=== PATIENT | female | born 1980 | race Caucasian/White ===

== ENCOUNTER 2017-07-03 15:06 | Emergency (ER) | payer MEDICAID ==
--- NOTE | 2017-07-03 15:53 | RAD ---
Indication: Left-sided pain. 3 views of left foot demonstrates no fracture. No other bone or joint abnormality is identified. IMPRESSION: No fracture of the left foot is noted.
--- NOTE | 2017-07-03 16:10 | UC ---
Lower Extremity/Ankle HPI - HPI Summary HPI Summary: left foot shut in bottom of a car door last night - History of Current Complaint Hx Obtained From: Patient Hx Last Menstrual Period: 06/27/17 ?: No Onset/Duration: Sudden Onset, Lasting Days - 1, Still Present Severity Initially: Moderate Severity Currently: Moderate Pain Intensity: 7 Pain Scale Used: 0-10 Numeric Aggravating Factor(s): Standing, Ambulation Alleviating Factor(s): Rest, Elevation, Ice Able to Bear Weight: Yes <Lacie Easton - Last Filed: 07/03/17 16:34> <Gali Brown - Last Filed: 07/03/17 16:41> - History of Current Complaint Chief Complaint: UCLowerExtremity Stated Complaint: FOOT INJURY Time Seen by Provider: 07/03/17 16:09 - Allergies/Home Medications Allergies/Adverse Reactions: Allergies Allergy/AdvReac Type Severity Reaction Status Date / Time nuts Allergy anaph Uncoded 07/03/17 15:14 Home Medications: Home Medications ALPRAZolam TAB* [Xanax TAB*] 0.5 mg PO TID 07/03/17 [History Confirmed 07/03/17] Albuterol 2.5MG/3ML (0.083%)* [Ventolin 2.5 MG/3 ML NEB.RYAN*] 2.5 mg PO PRN 06/12 [History] Albuterol HFA INHALER* [Ventolin HFA Inhaler*] 1 puff PO PRN 07/03/17 [History] Budesonide/Formote 160/4.5(NF) [Symbicort 160/4.5 (NF)] 1 puff PO DAILY [History Confirmed 07/03/17] Citalopram TAB* [Celexa TAB*] 40 mg PO BEDTIME 07/03/17 [History Confirmed 07/03] Fluticasone NASAL * [Flonase *] 1 spr NASAL BID 07/03/17 [History Confirmed 06/12] Loratadine 10 mg PO DAILY 07/03/17 [History Confirmed 07/03/17] Montelukast Sodium TAB* [Singulair 10 MG TAB*] 10 mg PO BEDTIME 07/03/17 [ History Confirmed 07/03/17] QUEtiapine TAB* [Seroquel TAB*] 25 mg PO BEDTIME 07/03/17 [History Confirmed 06/12] Tiotropium CAP.INH* [Spiriva CAP.INH*] 18 mcg PO DAILY 07/03/17 [History Confirmed 07/03/17] PMH/Surg Hx/FS Hx/Imm Hx Previously Healthy: Yes Respiratory History: COPD Psychological History: Anxiety, Depression - Surgical History Surgical History: Yes Surgery Procedure, Year, and Place: appy,right knee replaced ,tubal ligation - Family History Known Family History: Positive: None Family History: no cardio vascular issues reported in family lineage - Social History Occupation: Unemployed Lives: With Family Alcohol Use: None Substance Use Type: Marijuana Smoking Status (MU): Heavy Every Day Tobacco Smoker Have You Smoked in the Last Year: Yes Cessation Counseling: Patient Advised to Stop <Lacie Easton - Last Filed: 07/03/17 16:34> Review of Systems Constitutional: Negative Skin: Bruising - left foot Eyes: Negative ENT: Negative Respiratory: Negative Cardiovascular: Negative Gastrointestinal: Negative Genitourinary: Negative Motor: Negative Neurovascular: Negative Musculoskeletal: Arthralgia - left foot Neurological: Negative Psychological: Negative All Other Systems Reviewed And Are Negative: Yes <Lacie Easton - Last Filed: 07/03/17 16:34> Physical Exam Triage Information Reviewed: Yes Appearance: Well-Appearing, No Pain Distress, Well-Nourished Vital Signs: Initial Vital Signs Temp 98.5 F 07/03/17 15:14 Pulse 93 07/03/17 15:14 Resp 18 07/03/17 15:14 Pulse Ox 99 07/03/17 15:14 Vital Signs Reviewed: Yes Eye Exam: Normal Eyes: Positive: Conjunctiva Clear ENT Exam: Normal ENT: Positive: Normal ENT inspection, Hearing grossly normal, Pharynx normal, TMs normal. Negative: Nasal congestion, Nasal drainage, Trismus, Muffled/ hoarse voice Dental Exam: Other Dental: Positive: Gross Decay/Caries @ Neck exam: Normal Neck: Positive: Supple, Nontender Respiratory Exam: Normal Respiratory: Positive: Chest non-tender, No respiratory distress, No accessory muscle use Cardiovascular Exam: Normal Cardiovascular: Positive: RRR, Pulses Normal, Brisk Capillary Refill Musculoskeletal Exam: Normal Musculoskeletal: Positive: Strength Intact, ROM Intact, Edema @ - left great toe Neurological Exam: Normal Neurological: Positive: Alert, Muscle Tone Normal Psychological Exam: Normal Skin Exam: Normal <Lacie Easton - Last Filed: 07/03/17 16:34> Vital Signs: Initial Vital Signs Temp 98.5 F 07/03/17 15:14 Pulse 93 07/03/17 15:14 Resp 18 07/03/17 15:14 Pulse Ox 99 07/03/17 15:14 <Gali Brown - Last Filed: 07/03/17 16:41> Diagnostics - Radiology No standard instances Xray Interpretation: No Acute Changes Radiology Interpretation Completed By: Radiologist <Lacie Easton - Last Filed: 07/03/17 16:34> Lower Extremity Course/Dx - Course Course Of Treatment: Rice, Post op shoe, NSAID, follow with ortho prn - Differential Dx/Diagnosis Differential Diagnosis/HQI/PQRI: Contusion, Fracture (Closed), Infection - Left foot contusion, nicotine dependnt Provider Diagnoses: Left foot contusion <Lacie Easton - Last Filed: 07/03/17 16:34> Discharge <Lacie Easton - Last Filed: 07/03/17 16:34> <Gali Brown - Last Filed: 07/03/17 16:41> - Discharge Plan Condition: Stable Disposition: HOME Prescriptions: Ibuprofen TAB* [Motrin TAB* 600 MG] 600 mg PO Q6H PRN #30 tab PRN Reason: Pain Patient Education Materials: Foot Contusion (ED), RICE Therapy (ED) Referrals: [facility] [Provider Group] - 7 Days Attestation Statement User Type: Provider - I was available for consult. This patient was seen by the [facility]. The patient was not presented to, seen by, or examined by me. -Edy <Gali Brown - Last Filed: 07/03/17 16:41>
[2017-07-03] MEDS ORDERED: Ibuprofen TAB* 600 MG PO ONE (16:28)
== END 2017-07-03 16:45 | disposition home or self-care (01) ==
LOC: UCEAST 15:06
DX: S90.32XA Contusion of left foot, initial encounter (principal); W23.0XXA Caught, crushed, jammed, or pinched between moving objects, initial encounter; J44.9 Chronic obstructive pulmonary disease, unspecified; F41.9 Anxiety disorder, unspecified; F32.9 Major depressive disorder, single episode, unspecified; F12.90 Cannabis use, unspecified, uncomplicated; F17.210 Nicotine dependence, cigarettes, uncomplicated; Z96.651 Presence of right artificial knee joint; Z91.018 Allergy to other foods
CPT/HCPCS: 99202; A9270-GY; G0463

== ENCOUNTER 2018-01-01 20:11 | Emergency (ER) | payer MEDICAID ==
[2018-01-01] MEDS ORDERED: predniSONE TAB* 20 MG PO ONE (23:29)
[2018-01-01] MEDS ORDERED: Diazepam TAB(*) 5 MG PO ONE (23:29)
--- NOTE | 2018-01-01 23:34 | ED ---
Back Pain - HPI Summary HPI Summary: Patient here with a slip and fall on the ice 2 days ago. Reports she fell straight back as she slipped. Denies head/neck injury and no neuro deficits. She landed on her back and her right elbow which she believes caused her to injure her right shoulder. She has a history of chronic back pain and feels that this fall has exacerbated that. She does not have any new symptoms of numbness tingling or weakness into her legs and denies change in bowel or bladder habits since fall. She also reports she has no pain in her elbow and is able to move this well she just has pain in her shoulder with certain movements but not all. She has a history of right shoulder overuse injury which she suspects was a rotator cuff tendinitis. This healed over time. Think she tweaked it again with this fall - denies numbness, tingling, weakness into this extremity. Has tried BenGay rub and ibuprofen for her pain with minimal relief. She reports she was being followed by her primary care doctor for chronic back pain and prescribed oxycodone 10 mg however she's been referred to pain management and is awaiting her first appointment there. She does admit to taking multiple mental health medications including but not limited to citalopram and Seroquel (no benzo's). She admits she is mostly here tonight because her back pain is impairing her ability to sleep and she just can 't get comfortable. 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 Hx Last Menstrual Period: 06/27/17 Pain Intensity: 8 - Allergies/Home Medications Allergies/Adverse Reactions: Allergies Allergy/AdvReac Type Severity Reaction Status Date / Time nuts Allergy anaph Uncoded 01/01/18 20:19 PMH/Surg Hx/FS Hx/Imm Hx Previously Healthy: Yes Respiratory History: Reports: Hx Chronic Obstructive Pulmonary Disease (COPD) Musculoskeletal History: Reports: Hx Back Problems - chronic back pain Psychiatric History: Reports: Hx Anxiety - insomnia, Hx Depression - Surgical History Surgery Procedure, Year, and Place: appy,right knee replaced ,tubal ligation - Immunization History Date of Influenza Vaccine: Fall 2015 Infectious Disease History: No Infectious Disease History: Denies: Hx Clostridium Difficile, Hx Hepatitis, Hx Human Immunodeficiency Virus (HIV), Hx of Known/Suspected MRSA, Hx Shingles, Hx Tuberculosis, Hx Known/ Suspected VRE, Hx Known/Suspected VRSA, History Other Infectious Disease, Traveled Outside the [place] in Last 30 Days - Family History Known Family History: Positive: None Family History: no cardio vascular issues reported in family lineage - Social History Lives: With Family Alcohol Use: None Substance Use Type: Reports: Marijuana - helps anxiety - does not help back pain Hx Tobacco Use: Yes Smoking Status (MU): Current Every Day Smoker Have You Smoked in the Last Year: Yes Review of Systems Constitutional: Negative Eyes: Negative Negative: Photophobia, Blurred Vision, Diplopia ENT: Negative Negative: Dental Pain Cardiovascular: Negative Negative: Chest Pain Respiratory: Negative Negative: Shortness Of Breath Gastrointestinal: Negative Negative: Vomiting, Nausea Genitourinary: Negative Negative: incontinence Positive: Arthralgia, Myalgia Skin: Negative Neurological: Negative Positive: Anxious All Other Systems Reviewed And Are Negative: Yes Physical Exam Triage Information Reviewed: Yes Vital Signs On Initial Exam: Initial Vitals Temp Pulse Resp BP Pulse Ox 98.6 F 103 18 191/90 99 01/01/18 20:16 01/01/18 20:16 01/01/18 20:16 01/01/18 20:16 01/01/18 20:16 Vital Signs Reviewed: Yes Appearance: Positive: Well-Appearing, No Pain Distress, Well-Nourished Skin: Positive: Warm, Skin Color Reflects Adequate Perfusion, Dry - no erythema , no ecchymosis over affected areas Head/Face: Positive: Normal Head/Face Inspection Eyes: Positive: Normal, EOMI, ENRICO - no photophobia ENT: Positive: Normal ENT inspection, Hearing grossly normal, Pharynx normal, TMs normal Dental: Positive: Gross Decay/Caries @ Respiratory/Lung Sounds: Positive: Breath Sounds Present Cardiovascular: Positive: Normal, Pulses are Symmetrical in both Upper and Lower Extremities Abdomen Description: Positive: Nontender, Soft Musculoskeletal: Positive: Strength/ROM Intact, Pain @ - mild positive empty can - otherwise normal shoulder exam; entire back is TTP Neurological: Positive: Normal, Sensory/Motor Intact, Alert, Oriented to Person Place, Time, CN Intact II-III Psychiatric: Positive: Normal Diagnostics - Vital Signs Vital Signs Temp Pulse Resp BP Pulse Ox 01/01/18 22:25 92 18 115/77 95 01/01/18 20:16 98.6 F 103 18 191/90 99 - Laboratory Lab Statement: Any lab studies that have been ordered have been reviewed, and results considered in the medical decision making process. Back Pain Course/Dx - Course Course Of Treatment: Suspect patient exacerbated her chronic back pain with fall. Suggested she continue ibuprofen for anti-inflammatory relief as well as new additions of prednisone and diazepam for muscle relaxation to help her sleep at night. Her shoulder appears to be a tendinitis. Offered x-ray however patient declined. She reports she will follow-up if her symptoms persist or worsen with her PCP. Reviewed danger signs and symptoms of when to return to the emergency department. Patient and friend agree with plan. - Diagnoses Provider Diagnoses: Acute exacerbation of chronic low back pain, Fall from slipping on ice, Sprain of right shoulder Discharge - Discharge Plan Condition: Stable Disposition: HOME Prescriptions: Diazepam TAB(*) [Valium TAB(*)] 5 mg PO BEDTIME PRN #3 tab MDD 1 PRN Reason: Pain predniSONE TAB* [Deltasone TAB*] 40 mg PO DAILY #8 tab Patient Education Materials: Muscle Spasm (ED), Back Pain (ED), Fall Prevention (ED) Referrals: Gera GODFREY,Esau Gallardo [Primary Care Provider] - Additional Instructions: You may take ibuprofen alternating with acetaminophen for your back pain as well - take with food Use new medications as directed Follow-up with PCP later this week if symptoms persist *If you develop numbness, weakness, change in bowel/bladder habits, return to the ED
[2018-01-01 23:58] VITALS: BP 110/80
== END 2018-01-01 23:57 | disposition home or self-care (01) ==
LOC: ED 20:11
DX: S43.401A Unspecified sprain of right shoulder joint, initial encounter (principal); M54.5 Low back pain; G89.29 Other chronic pain; W00.0XXA Fall on same level due to ice and snow, initial encounter; F17.200 Nicotine dependence, unspecified, uncomplicated; Y92.9 Unspecified place or not applicable; F41.9 Anxiety disorder, unspecified; F32.9 Major depressive disorder, single episode, unspecified; J44.9 Chronic obstructive pulmonary disease, unspecified; G47.00 Insomnia, unspecified
CPT/HCPCS: 99282; A9270-GY; J7512

== ENCOUNTER 2018-05-29 12:02 | Emergency (ER) | payer OTHER ==
--- NOTE | 2018-05-29 12:54 | RAD ---
HISTORY: injury, right ankle pain COMPARISONS: None VIEWS: 3, Frontal, lateral, and oblique views of the right ankle FINDINGS: BONE DENSITY: Normal. BONES: There is no displaced fracture. JOINTS: There is no arthropathy. ALIGNMENT: There is no dislocation. SOFT TISSUES: Unremarkable. OTHER FINDINGS: None. IMPRESSION: NO ACUTE OSSEOUS INJURY. IF SYMPTOMS PERSIST, RECOMMEND REPEAT IMAGING.
[2018-05-29 13:10] VITALS: BP 144/87
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
== END 2018-05-29 13:08 | disposition home or self-care (01) ==
LOC: ED 12:02
DX: S93.401A Sprain of unspecified ligament of right ankle, initial encounter (principal); X50.0XXA Overexertion from strenuous movement or load, initial encounter; Y92.9 Unspecified place or not applicable; F17.200 Nicotine dependence, unspecified, uncomplicated
CPT/HCPCS: 99281

== ENCOUNTER 2018-06-24 03:06 | Inpatient (IN) | payer OTHER ==
[2018-06-24] MEDS ORDERED: predniSONE TAB* 20 MG PO ONE (03:50)
[2018-06-24] MEDS ORDERED: Albuterol 0.5% CONC NEB.SOL* 5 MG/ML 20 ml BOT INH ONE ×2 (03:52→06:13)
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
[2018-06-24] MEDS ORDERED: Magnesium Sulfate 2 GM IV* 2 GM/50 ML BAG IVPB ONE (06:13)
[2018-06-24] MEDS ORDERED: EPINEPHrine AMP 1 MG/ML IM ONE (06:13)
[2018-06-24 07:23] LABS: ABS Basophils 0 10^3/ul (0-0.2); ABS Eosinophils 0 10^3/ul (0-0.6); ABS Lymphocytes 1.1 10^3/ul (1.0-4.8); ABS Monocytes 0.2 10^3/ul (0-0.8); ABS Neutrophils 7.5 10^3/ul (1.5-7.7); ABS Nucleated RBC 0 10^3/ul; Eosinophil % 0.4 % (0-6); Hematocrit 41 % (35-47); Hemoglobin 14.1 g/dl (12.0-16.0); Lymphocyte % 12.4 % (25-47); Mean Corpuscular HGB Conc 34 g/dl (31-36); Mean Corpuscular Hemoglobin 31 pg (27-31); Mean Corpuscular Volume 91 fL (80-97); Mean Platelet Volume 7.5 um3 (7.4-10.4); Nucleated Red Blood Cells % 0; Platelet Count 356 10^3/ul (150-450); Red Blood Count 4.53 10^6/ul (4.00-5.40); Red Cell Distribution Width 14 % (10.5-15); White Blood Count 8.9 10^3/ul (3.5-10.8)
[2018-06-24 07:47] LABS: EGFR Non-African American 80.6 (>60)
[2018-06-24] MEDS ORDERED: Albuterol/Ipratropium NEB.SOL* Albuterol 2.5 MG/Ipratropium 0.5 MG 3 ML INH ONE (08:18)
--- NOTE | 2018-06-24 08:36 | ED ---
Progress - Progress Note Progress Note: Pt was signed out by Dr. Healy. Pt is awaiting lab results and disposition. [place] [facility] [place] EKG/XRAY/CT XRAY: chest Xray Comments: IMPRESSION: NO ACTIVE DISEASE. ER Physician reviewed this report Re-Evaluation - Re-Evaluation First Eval Re-Evaluation Time: 05:44 Course/Dx - Course Course Of Treatment: CXR received and reviewed. Pt will be admitted. Discharge - Sign-Out/Discharge Documenting (check all that apply): Patient Departure, Receiving Sign-Out Receiving patient FROM: Lew Healy - Discharge Plan Condition: Fair Disposition: ADMITTED TO [facility]
--- NOTE | 2018-06-24 09:44 | RAD ---
INDICATION: Cough. Short of breath COMPARISON: [id number] TECHNIQUE: PA and lateral dual-energy views were obtained. FINDINGS: Bones/Soft Tissues: There are no acute bony findings. Cardiomediastinal: The cardiomediastinal silhouette is normal. Lungs: There are no infiltrates. Pleura: There are no pleural effusions. Other: None IMPRESSION: NO ACTIVE DISEASE.
[2018-06-24] MEDS: Albuterol 2.5 MG/3 ML NEB.SOL* (0.083%) INH SCH ×4 (11:22→23:59)
[2018-06-24] MEDS: Mometasone/Formoter 200/5 MDI INH SCH (11:22)
[2018-06-24] MEDS: Cetirizine* 10 MG TAB PO SCH (12:15)
[2018-06-24] MEDS: methylPREDNISolone SOD 40 MG* 1 ML VIAL IV SCH ×3 (12:15→21:03)
--- NOTE | 2018-06-24 13:27 | HP ---
CC: Dr. Esau Boss * ADMISSION HISTORY AND PHYSICAL: DATE OF ADMISSION: 06/24/18 PRIMARY CARE PROVIDER: Dr. Esau Boss. MY ATTENDING WHILE IN THE HOSPITAL: Dr. Beatrice Zavala.* (DICTATED BY VANESA PLATT) CHIEF COMPLAINT: Severe shortness of breath x12 hours. HISTORY OF PRESENT ILLNESS: Ms. Cole is a 38-year-old female with past medical history significant for asthma, COPD, severe anxiety, and multiple admissions to the hospital for her COPD, who presents with increased shortness of breath x1 week, but to a manageable degree, with response to normal medications and inhalers, who then went camping with her sons last night, was exposed to campfire smoke, began to cough profusely and have severe shortness of breath to the point where she could not lie down or sleep and had a sensation of shortness of breath, was rolling around in bed. The patient was brought into the emergency department. The patient denied any recent sick contacts. The patient recently ran out of her rescue inhaler, so she was unable to take this while camping. The patient has been taking all of her other maintenance inhalers for COPD. The patient normally has no restricted functional capacity, but at this point gets short of breath with minimal activity. The patient states that when she coughs, she gets tightness and pain in the center of her chest. The patient also endorsed some posttussive vomiting. The patient states that she has had minimal improvement with therapy in the emergency department such as inhalers and steroids. The patient no longer actively smokes. The patient quit smoking several years ago. The patient has a [id number] history of smoking. The patient also smokes occasional marijuana, but often finds that her COPD/asthma is exacerbated by exposures to irritants such as smoke or grass clippings. The patient 1 year ago was admitted to [facility] for over a month with a persistent COPD exacerbation, during which time she states that she was feeling much better , but that her lung exam was persistently not improving. The patient has severe anxiety and takes Xanax once a day as well as citalopram and uses marijuana adjunctively for control of her anxiety, which she states does help and allows her to take her Xanax less frequently. Due to concern for COPD exacerbation, we were asked to evaluate for admission. PAST MEDICAL HISTORY: Asthma, COPD, migraine disorder, anxiety, depression, spinal stenosis. PAST SURGICAL HISTORY: Tubal ligation, right patella surgery. MEDICATIONS: 1. Spiriva 18 mcg inhalation daily. 2. Symbicort 160/4.5 one puff p.o. daily. 3. Seroquel 25 mg p.o. at bedtime. 4. Singulair 10 mg p.o. at bedtime. 5. Flonase 1 spray nasal b.i.d. 6. Citalopram 40 mg p.o. at bedtime. 7. Xanax 0.5 mg p.o. t.i.d. p.r.n. 8. Albuterol inhaler 1 puff q.6 hours as needed. 9. Albuterol nebulizer 2.5 mg p.o. q.a.m. as needed. 10. Motrin/ibuprofen 600 mg p.o. q.6 hours as needed. 11. Claritin 10 mg p.o. daily. ALLERGIES: NUTS, SEASONAL ALLERGIES. FAMILY HISTORY: The patient's father is alive and has COPD and hypertension at the age of 80. The patient's mother of complications of COPD and had significant heart disease including coronary artery disease, atrial fibrillation , and hypertension. The patient has 5 brothers who are healthy, 1 sister who is healthy, and 1 sister who has anxiety, hypertension, and spinal stenosis. SOCIAL HISTORY: The patient has a 72-[id number]-[id number] history of smoking, having quit several years ago. The patient drinks occasional alcohol, but does not abuse. The patient smokes marijuana occasionally for control of her pain and anxiety. 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 The patient has frequent occupational exposure to construction dust. The patient is in a long-term relationship and has 4 children. The patient would like her surrogate decision maker to be her father, Reynold Cole. REVIEW OF SYSTEMS: A 14-point review of systems was reviewed and is negative except as above in the HPI. PHYSICAL EXAMINATION GENERAL: The patient is a 38-year-old female, who appears stated age and sitting comfortably in bed, in no acute distress. VITAL SIGNS: Temperature 98.5, pulse rate 78, respiratory rate 18, oxygen saturation 99% on room air, blood pressure 135/76. HEENT: Head, normocephalic, atraumatic. Sclerae anicteric. No conjunctival injection. Nasal mucosa moist. Oral mucosa moist. No pharyngeal erythema, discharge, or exudate. Tonsils enlarged. NECK: Supple, nontender. No lymphadenopathy. No carotid bruits auscultated. No JVD. RESPIRATORY: Inspiratory and expiratory wheezes heard best in the upper lobes, diminishing towards the lower lobes with diminished breath sounds throughout. Negative egophony. No other signs of consolidation. CARDIAC: Tachycardic. No clicks, murmurs, gallops, or rubs. Pulses are 2+ in the bilateral dorsalis pedis, posterior tibial, and radial areas. No bilateral lower extremity edema noted. ABDOMEN: Soft, nontender, nondistended. Bowel sounds hypoactive, but present in all 4 quadrants. No hepatosplenomegaly. No abdominal bruits auscultated. No hepatojugular reflux. NEURO: Cranial nerves II through XII intact. No focal deficits. Alert and oriented x3. PSYCHIATRIC: Pleasant and cooperative. SKIN: Clean, dry, intact. No rash. DIAGNOSTIC STUDIES/LAB DATA: White blood cell count 8.9, hemoglobin 14.1, hematocrit 41, platelet count 356. Sodium 136, potassium 3.8, chloride 104, carbon dioxide 24, anion gap 8, BUN 13, creatinine 0.79, glucose 132, calcium 9.6. Bilirubin 0.4, AST 18, ALT 13, alkaline phosphatase 95. Total protein 8.1 , albumin 4.3, globulin 3.8. Studies done while in the hospital: Chest x-ray read as no acute disease. The patient has large lung volumes. ASSESSMENT AND PLAN/IMPRESSION: Ms. Cole is a 38-year-old female with past medical history significant for chronic obstructive pulmonary disease and asthma with frequent exacerbations including several severe exacerbations requiring hospitalization and other frequent exacerbations requiring steroids prescribed by her outpatient provider, who had exposure to smoke, which is a known irritant for [facility] and developed uncontrolled cough and shortness of breath, which did not respond to therapy in the emergency department. The patient will be admitted to the hospital for chronic obstructive pulmonary disease exacerbation. 1. Chronic obstructive pulmonary disease exacerbation, asthma exacerbation, and possible vocal cord dysfunction. The patient has had numerous episodes of chronic obstructive pulmonary disease and asthma exacerbations requiring hospitalization. The patient will be admitted to the hospital and started on steroids, albuterol inhaler, and will be maintained on her home medications. The patient has no infiltrate on chest x-ray. The patient has no signs of any consolidation on exam. The patient will not be treated with antibiotics at this time. The patient's cough is nonproductive. If the patient has more overt signs of pneumonia such as increased sputum production, persistent tachycardia, elevated temperatures, then antibiotics, sputum culture, and urine antigen should be considered; however, the patient has a clear provoking factor for her chronic obstructive pulmonary disease exacerbation and her smoke exposure. The patient has inspiratory and expiratory wheezes raising the possibility of vocal cord dysfunction. This should be evaluated more fully outpatient with her last waxer. 2. Anxiety. The patient has severe anxiety and takes her Xanax at least once a day. The patient also uses marijuana adjunctively as this helps her anxiety and is on citalopram. We will continue citalopram and Xanax as needed while in the hospital. The patient should discuss with her primary care provider decreasing the use of her Xanax further to avoid dependence. 3. Spinal stenosis. The patient has known spinal stenosis for which she undergoes physical therapy and takes oxycodone at home on a routine basis. This will be continued in the hospital. This should also be followed up outpatient with her primary care provider for discussion with adjunctive therapies for pain management. 4. DVT prophylaxis. The patient is a moderate risk and will be continued on heparin subcu. 5. FEN. The patient will have a regular unrestricted diet. The patient does not require any fluids. 6. Code status. The patient would like to be a full code. The patient's surrogate decision maker is her father, Reynold Cole, as above. TIME SPENT: Approximately 60 minutes was spent on this admission, 30 of which was spent [id number] with the patient obtaining history and physical and discussing treatment plan. The plan was discussed with my attending, Dr. Beatrice Zavala, and she is in agreement. VANESA PLATT [id number]/[facility] #: [id number] ERICK
[2018-06-24] MEDS: Heparin VIAL(*) 5000 UNITS/ML VIAL (FIVE THOUSAND) SUBCUT SCH ×2 (14:05→21:06)
[2018-06-24] MEDS: QUEtiapine TAB* 25 MG PO SCH (21:02)
[2018-06-24] MEDS: Montelukast Sodium TAB* 10 MG PO SCH (21:02)
[2018-06-24] MEDS: Citalopram TAB* 40 MG PO SCH (21:02)
[2018-06-24] MEDS: ALPRAZolam TAB* 0.5 MG PO PRN (21:02)
[2018-06-24] MEDS: oxyCODONE TAB* 5 MG TAB PO PRN (21:03)
[2018-06-25] MEDS: methylPREDNISolone SOD 40 MG* 1 ML VIAL IV SCH ×3 (04:27→19:55)
[2018-06-25] MEDS: Albuterol 2.5 MG/3 ML NEB.SOL* (0.083%) INH SCH ×2 (04:35→08:03)
[2018-06-25] MEDS: Heparin VIAL(*) 5000 UNITS/ML VIAL (FIVE THOUSAND) SUBCUT SCH ×3 (05:21→21:38)
[2018-06-25] MEDS: oxyCODONE TAB* 5 MG TAB PO PRN ×3 (05:25→18:37)
[2018-06-25] MEDS: Mometasone/Formoter 200/5 MDI INH SCH (08:04)
[2018-06-25] MEDS ORDERED: Spiriva Inhaler DEVICE* 1 EACH DEVICE INH ONE (09:00)
[2018-06-25] MEDS ORDERED: Tiotropium CAP.INH* CAP.INH/18 MCG (USE ORDER SET !) INH SCH (09:00)
[2018-06-25] MEDS: Cetirizine* 10 MG TAB PO SCH (09:18)
[2018-06-25] MEDS: ALPRAZolam TAB* 0.5 MG PO PRN ×2 (09:22→14:38)
[2018-06-25 09:31] LABS: ABS Basophils 0 10^3/ul (0-0.2); ABS Eosinophils 0 10^3/ul (0-0.6); ABS Lymphocytes 0.8 10^3/ul (1.0-4.8); ABS Monocytes 0.2 10^3/ul (0-0.8); ABS Neutrophils 12.1 10^3/ul (1.5-7.7); ABS Nucleated RBC 0 10^3/ul; Eosinophil % 0 % (0-6); Hematocrit 45 % (35-47); Hemoglobin 15.1 g/dl (12.0-16.0); Lymphocyte % 6.4 % (25-47); Mean Corpuscular HGB Conc 34 g/dl (31-36); Mean Corpuscular Hemoglobin 31 pg (27-31); Mean Corpuscular Volume 92 fL (80-97); Mean Platelet Volume 7.7 um3 (7.4-10.4); Nucleated Red Blood Cells % 0; Platelet Count 408 10^3/ul (150-450); Red Blood Count 4.86 10^6/ul (4.00-5.40); Red Cell Distribution Width 14 % (10.5-15); White Blood Count 13.2 10^3/ul (3.5-10.8)
[2018-06-25 09:49] LABS: EGFR Non-African American 86.9 (>60)
[2018-06-25] MEDS ORDERED: Albuterol (2.5 MG) 0.5 % CONC 2.5 MG/0.5 ML NEB.SOLN (ICU and ED only) INH PRN (10:53)
[2018-06-25] MEDS ORDERED: ' INH PRN (12:00)
[2018-06-25] MEDS: Albuterol/Ipratropium NEB.SOL* Albuterol 2.5 MG/Ipratropium 0.5 MG 3 ML INH SCH ×3 (12:20→19:43)
--- NOTE | 2018-06-25 16:18 | PN ---
Subjective Date of Service: 06/25/18 Interval History: Pt seen and examined. Meds and labs reviewed ROS: Increase cough, non-productive, SOB on presentation has improved. Denied KOEHLER/dizziness, F/C, N/V, CP, sputum production, abd pain, diarrhea, constipation , dysuria, myalgias, arthralgias, throat pain, and new skin lesions. The rest of the 14 point ROS are unremarkable. PHYSICAL EXAM: GEN APPEARANCE: Awake, not in acute distress HEENT: NC/AT, PERRLA, moist oral mucosa, (-) throat erythema NECK: Soft, supple, (-) cervical LAD, (-)JVD HEART: S1S2 WNL, RRR, No MRG CHEST: Diffuse wheezing throughout lung cartwright, GAE, No W/R/R ABD: Soft, ND/NT, NABS 4x Q EXT: No C/C/E SKIN: Warm to touch PSYCH: No active psychosis, hallucinations, depression, SI/HI Objective Active Medications: Albuterol (Ventolin 2.5 Mg/3 Ml Neb.Kayleigh*) 2.5 mg INH Q2H PRN PRN Reason: SOB/WHEEZING Albuterol/Ipratropium (Duoneb (Albuterol 2.5 Mg/Ipratropium 0.5 Mg)) 1 neb INH Q4H SERVANDO Last Admin: 06/25/18 16:09 Dose: 1 neb Alprazolam (Xanax Tab*) 0.5 mg PO TID PRN PRN Reason: ANXIETY Last Admin: 06/25/18 14:38 Dose: 0.5 mg Cetirizine HCl (Zyrtec*) 10 mg PO DAILY SERVANDO Last Admin: 06/25/18 09:18 Dose: 10 mg Citalopram Hydrobromide (Celexa Tab*) 40 mg PO BEDTIME SERVANDO Last Admin: 06/24/18 21:02 Dose: 40 mg Heparin Sodium (Porcine) (Heparin Vial(*)) 5,000 units SUBCUT Q8HR SERVANDO Last Admin: 06/25/18 14:34 Dose: 5,000 units Ibuprofen (Motrin Tab*) 600 mg PO Q6H PRN PRN Reason: Pain Methylprednisolone Sodium Succinate (Solu-Medrol 40 Mg) 60 mg IV 0400,1200, 2000 [facility] Last Admin: 06/25/18 11:56 Dose: 60 mg Mometasone Furoate/Formoterol Fumar (Dulera 200/5 Mdi*) 1 puff INH DAILY SERVANDO; Protocol Last Admin: 06/25/18 08:04 Dose: 1 puff Montelukast Sodium (Singulair Tab*) 10 mg PO BEDTIME SERVANDO Last Admin: 06/24/18 21:02 Dose: 10 mg Oxycodone HCl (Roxycodone Tab*) 10 mg PO Q6H PRN PRN Reason: PAIN Last Admin: 06/25/18 11:55 Dose: 10 mg Quetiapine Fumarate (Seroquel Tab*) 25 mg PO BEDTIME SERVANDO Last Admin: 06/24/18 21:02 Dose: 25 mg Vital Signs - 8 hr 06/25/18 06/25/18 06/25/18 09:22 11:40 11:55 Temperature 97.8 F Pulse Rate 91 Respiratory 18 17 18 Rate Blood Pressure 123/70 (mmHg) O2 Sat by Pulse 96 Oximetry 06/25/18 06/25/18 06/25/18 11:56 12:21 14:38 Temperature Pulse Rate 89 Respiratory 18 12 18 Rate Blood Pressure (mmHg) O2 Sat by Pulse 99 Oximetry 06/25/18 14:48 Temperature Pulse Rate Respiratory 18 Rate Blood Pressure (mmHg) O2 Sat by Pulse Oximetry Oxygen Devices in Use Now: None Result Diagrams: 06/25/18 09:05 06/25/18 09:05 Assess/Plan/Problems-Billing Assessment: - Patient Problems (1) SOB (shortness of breath) Current Visit: Yes Status: Acute Code(s): R06.02 - SHORTNESS OF BREATH SNOMED Code(s): 523996918 Comment: -Likely with COPD and asthma exacerbation, however, given relatively re- assuring ABG, it is indeed possible that pt may have vocal cord problems, however, this will need an outpatient flow-volume loop study with Dr. Rankin as an outpt -Will increase Solumedrol and place pt on Duonebs -Adjusted Albuterol dosing -D-dimer is <200 and rules out PE/Venous Thromboembolism (2) Anxiety Current Visit: Yes Status: Acute Code(s): F41.9 - ANXIETY DISORDER, UNSPECIFIED SNOMED Code(s): 20680493 Comment: -Continue PRN Xanax -Continue watchful waiting (3) Spinal stenosis Current Visit: Yes Status: Acute Code(s): M48.00 - SPINAL STENOSIS, SITE UNSPECIFIED SNOMED Code(s): 96201714 Comment: #history of, -Continue PRN pain meds -Continue watchful waiting (4) DVT prophylaxis Current Visit: Yes Status: Acute Code(s): QIS1395 - SNOMED Code(s): 226231469 Comment: -Continue Heparin SQq8H Status and Disposition: -For possible D/C in 1-2 days
[2018-06-25] MEDS: Ibuprofen TAB* 600 MG PO PRN (18:37)
[2018-06-25] MEDS: QUEtiapine TAB* 25 MG PO SCH (20:56)
[2018-06-25] MEDS: Montelukast Sodium TAB* 10 MG PO SCH (20:56)
[2018-06-25] MEDS: Citalopram TAB* 40 MG PO SCH (20:56)
[2018-06-26] MEDS: Albuterol/Ipratropium NEB.SOL* Albuterol 2.5 MG/Ipratropium 0.5 MG 3 ML INH SCH ×4 (00:33→11:35)
[2018-06-26] MEDS: ALPRAZolam TAB* 0.5 MG PO PRN ×2 (01:02→08:41)
[2018-06-26] MEDS: Ibuprofen TAB* 600 MG PO PRN (01:02)
[2018-06-26] MEDS: oxyCODONE TAB* 5 MG TAB PO PRN ×2 (01:02→07:48)
[2018-06-26] MEDS: methylPREDNISolone SOD 40 MG* 1 ML VIAL IV SCH ×2 (03:57→11:45)
[2018-06-26 05:37] LABS: Hematocrit 40 % (35-47); Hemoglobin 13.2 g/dl (12.0-16.0); Mean Corpuscular HGB Conc 33 g/dl (31-36); Mean Corpuscular Hemoglobin 31 pg (27-31); Mean Corpuscular Volume 93 fL (80-97); Mean Platelet Volume 7.6 um3 (7.4-10.4); Platelet Count 350 10^3/ul (150-450); Red Blood Count 4.28 10^6/ul (4.00-5.40); Red Cell Distribution Width 14 % (10.5-15); White Blood Count 12.9 10^3/ul (3.5-10.8)
[2018-06-26] MEDS: Heparin VIAL(*) 5000 UNITS/ML VIAL (FIVE THOUSAND) SUBCUT SCH (05:41)
[2018-06-26 05:54] LABS: EGFR Non-African American 91.2 (>60)
[2018-06-26] MEDS: Mometasone/Formoter 200/5 MDI INH SCH (08:38)
[2018-06-26] MEDS: Cetirizine* 10 MG TAB PO SCH (08:38)
[2018-06-26 12:14] VITALS: BP 119/56
[2018-06-26] MEDS ORDERED: Albuterol/Ipratropium NEB.SOL* Albuterol 2.5 MG/Ipratropium 0.5 MG 3 ML INH SCH (13:00)
== END 2018-06-26 12:30 | disposition home or self-care (01) | DRG 140 ==
LOC: ED 03:06 → SSU 10:36
PROVIDERS: ADMIT Hospitalist; ATTEND Student in an Organized Health Care Education/Training Program
DX: J44.1 Chronic obstructive pulmonary disease with (acute) exacerbation (principal); J45.901 Unspecified asthma with (acute) exacerbation; F41.9 Anxiety disorder, unspecified; M48.00 Spinal stenosis, site unspecified; R06.02 Shortness of breath; G43.909 Migraine, unspecified, not intractable, without status migrainosus; F32.9 Major depressive disorder, single episode, unspecified; J30.2 Other seasonal allergic rhinitis; Z79.1 Long term (current) use of non-steroidal anti-inflammatories (NSAID); Z87.891 Personal history of nicotine dependence; Z79.899 Other long term (current) drug therapy; Z91.018 Allergy to other foods; Z82.5 Family history of asthma and other chronic lower respiratory diseases; Z82.49 Family history of ischemic heart disease and other diseases of the circulatory system; Z81.8 Family history of other mental and behavioral disorders
CPT/HCPCS: 36415; 36600; 71046; 80048; 80053; 82803; 83735; 84100; 85025; 85027; 85379; 94640; 99285; 99406; A9270-GY; J0171; J1644; J2920; J3475; J7512; J7611

== ENCOUNTER 2019-05-20 13:18 | Emergency (ER) | payer SELFPAY ==
[2019-05-20 14:00] LABS: ABS Basophils 0.1 10^3/ul (0-0.2); ABS Eosinophils 0.1 10^3/ul (0-0.6); ABS Lymphocytes 1.8 10^3/ul (1.0-4.8); ABS Monocytes 0.6 10^3/ul (0-0.8); ABS Neutrophils 6.2 10^3/ul (1.5-7.7); Eosinophil % 0.8 %; Hematocrit 45 % (35-47); Hemoglobin 15.4 g/dL (12.0-16.0); Lymphocyte % 20.4 %; Mean Corpuscular HGB Conc 34 g/dL (31-36); Mean Corpuscular Hemoglobin 31 pg (27-31); Mean Corpuscular Volume 91 fL (80-97); Mean Platelet Volume 8.2 fL (7.4-10.4); Nucleated Red Blood Cells % 0.1; Platelet Count 333 10^3/uL (150-450); Red Blood Count 4.91 10^6 /uL (3.70-4.87); Red Cell Distribution Width 13 % (10-15); White Blood Count 8.8 10^3/uL (3.5-10.8)
[2019-05-20 14:12] LABS: Albumin 4.2 g/dL (3.2-5.2); Albumin/Globulin Ratio 1.2 (1-3); BUN/Creatinine Ratio 13.9 (8-20); Calcium 9.6 mg/dL (8.6-10.3); EGFR Non-African American 89.3 (>60); Globulin 3.5 g/dL (2-4); Potassium 3.7 mmol/L (3.5-5.0); Total Bilirubin 0.7 mg/dL (0.2-1.0); Total Protein 7.7 g/dL (6.4-8.9)
[2019-05-20] MEDS ORDERED: Albuterol/Ipratropium NEB.SOL* Albuterol 2.5 MG/Ipratropium 0.5 MG 3 ML INH ONE (15:41)
[2019-05-20] MEDS ORDERED: Dexamethasone IV* 4 MG/ML 1 ML (4 MG) IV SLOW PU ONE (15:41)
--- NOTE | 2019-05-20 15:45 | ED ---
Shortness of Breath - HPI Summary HPI Summary: The patient is a 39 y/o F presenting to [facility] with a chief complaint of sudden onset SOB with coughing and wheezing today. She reports that she was unable to ambulate far due to the SOB. She is not on O2 at home, but she has a nebulizer that did not help to alleviate her symptoms, which are currently rated 8/10 in severity. She denies fever, chills, erythema of eyes, sore throat, CP, abdominal pain, N/V, dysuria, hematuria, myalgia, edema, rash, and dizziness. 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 Hx of asthma, COPD, back problems, migraine. Currently taking Symbicort. Light every day smoker, no EtOH, marijuana use. - History of Current Complaint Chief Complaint: EDShortnessOfBreath Time Seen by Provider: 05/20/19 13:24 Hx Obtained From: Patient Onset/Duration: Sudden Onset, Lasting Hours, Still Present Current Severity: Moderate Dyspnea At: Rest Aggravating Factors: Allergens - dust Alleviating Factors: Oxygen, Other - nebulizier to no relief Associated Signs & Symptoms: Cough (Productive), Wheezing - Allergy/Home Medications Allergies/Adverse Reactions: Allergies Allergy/AdvReac Type Severity Reaction Status Date / Time nuts Allergy anaph Uncoded 06/24/18 03:08 Home Medications: Home Medications Albuterol inh POWDER (NF) [Proair Respiclick] 2 puff INH .Q4-6H PRN 05/20/19 [ History Confirmed 05/20/19] Albuterol/Ipratropium NEB.RYAN* [Duoneb (Albuterol 2.5 MG/Ipratropium 0.5 MG)] 1 neb INH QID PRN 05/20/19 [History Confirmed 05/20/19] Budesonide/Formote 160/4.5(NF) [Symbicort 160/4.5 (NF)] 2 puff INH BID 05/20/19 [History Confirmed 05/20/19] Citalopram TAB* [CeleXA TAB*] 40 mg PO DAILY 05/20/19 [History Confirmed ] Fluticasone NASAL SPRAY 50MCG* [Flonase NASAL SPRAY 50MCG*] 2 spray BOTH NARES DAILY 05/20/19 [History Confirmed 05/20/19] Ibuprofen TAB* [Motrin TAB* 800 MG] 800 mg PO TID WITH MEALS 05/20/19 [History Confirmed 05/20/19] LoraTADine TAB(NF) [Claritin 10 MG TAB(NF)] 10 mg PO DAILY 05/20/19 [History Confirmed 05/20/19] Umeclidinium 62.5 MDI(NF) [Incruse ELLIPTA MDI (NF)] 1 inh INH DAILY 05/20/19 [ History Confirmed 05/20/19] Venlafaxine EXT RELEASE CAP* [Effexor Xr CAP*] 75 mg PO QAM 05/20/19 [History Confirmed 05/20/19] PMH/Surg Hx/FS Hx/Imm Hx Endocrine/Hematology History: Denies: Hx Diabetes Cardiovascular History: Denies: Hx Hypertension Respiratory History: Reports: Hx Asthma, Hx Chronic Obstructive Pulmonary Disease (COPD) Musculoskeletal History: Reports: Hx Back Problems - chronic back pain Sensory History: Denies: Hx Contacts or Glasses, Hx Hearing Aid Opthamlomology History: Denies: Hx Contacts or Glasses Neurological History: Reports: Hx Migraine Psychiatric History: Reports: Hx Anxiety - insomnia, Hx Depression - Surgical History Surgery Procedure, Year, and Place: appy,right knee replaced ,tubal ligation Hx Anesthesia Reactions: No - Immunization History Date of Influenza Vaccine: Fall 2015 Infectious Disease History: No Infectious Disease History: Denies: Hx Clostridium Difficile, Hx Hepatitis, Hx Human Immunodeficiency Virus (HIV), Hx of Known/Suspected MRSA, Hx Shingles, Hx Tuberculosis, Hx Known/ Suspected VRE, Hx Known/Suspected VRSA, History Other Infectious Disease, Traveled Outside the [place] in Last 30 Days - Family History Known Family History: Negative: Cardiac Disease, Hypertension, Diabetes Family History: no cardio vascular issues reported in family lineage - Social History Alcohol Use: None Hx Substance Use: Yes Substance Use Type: Reports: Marijuana Hx Tobacco Use: Yes Smoking Status (MU): Light Every Day Tobacco Smoker Have You Smoked in the Last Year: Yes Review of Systems Negative: Fever, Chills Negative: Erythema Negative: Sore Throat Negative: Chest Pain Positive: Shortness Of Breath, Cough, Other - wheezing Negative: Abdominal Pain, Vomiting, Nausea Negative: dysuria, hematuria Negative: Myalgia, Edema Negative: Rash Neurological: Other - NEGATIVE: dizziness All Other Systems Reviewed And Are Negative: Yes Physical Exam - Summary Physical Exam Summary: Constitutional: Well-developed, Well-nourished, Alert. (-) Distressed Skin: Warm, Dry HENT: Normocephalic; Atraumatic Eyes: Conjunctiva normal Neck: Musculoskeletal ROM normal neck. (-) JVD, (-) Stridor, (-) Tracheal deviation Cardio: Rhythm regular, rate normal, Heart sounds normal; Intact distal pulses; The pedal pulses are 2+ and symmetric. Radial pulses are 2+ and symmetric. (-) Murmur Pulmonary/Chest wall: Effort normal. (-) Respiratory distress, (+) Expiratory Wheezes, (-) Rales Abd: Soft, (-) tenderness, (-) Distension, (-) Guarding, (-) Rebound Musculoskeletal: (-) Edema Lymph: (-) Cervical adenopathy Neuro: Alert, Oriented x3 Psych: Mood and affect Normal Triage Information Reviewed: Yes Vital Signs On Initial Exam: Initial Vitals Temp Pulse Resp BP Pulse Ox 98.4 F 81 20 125/88 96 05/20/19 13:19 05/20/19 13:19 05/20/19 13:19 05/20/19 13:19 05/20/19 13:19 Vital Signs Reviewed: Yes Diagnostics - Vital Signs Vital Signs Temp Pulse Resp BP Pulse Ox 05/20/19 14:48 134/96 05/20/19 14:00 80 97 05/20/19 13:25 99 98 05/20/19 13:24 82 114/85 95 05/20/19 13:19 98.4 F 81 20 125/88 96 - Laboratory Lab Results: Lab Results 05/20/19 05/20/19 05/20/19 Range/Units 13:45 13:53 13:53 WBC 8.8 (3.5-10.8) 10^3/uL RBC 4.91 H (3.70-4.87) 10^6 /uL Hgb 15.4 (12.0-16.0) g/dL Hct 45 (35-47) % MCV 91 (80-97) fL MCH 31 (27-31) pg MCHC 34 (31-36) g/dL RDW 13 (10-15) % Plt Count 333 (150-450) 10^3/uL MPV 8.2 (7.4-10.4) fL Neut % (Auto) 70.8 % Lymph % (Auto) 20.4 % [place] % (Auto) 7.3 % Eos % (Auto) 0.8 % Baso % (Auto) 0.7 % Absolute Neuts (auto) 6.2 (1.5-7.7) 10^3/ul Absolute Lymphs (auto) 1.8 (1.0-4.8) 10^3/ul Absolute Monos (auto) 0.6 (0-0.8) 10^3/ul Absolute Eos (auto) 0.1 (0-0.6) 10^3/ul Absolute Basos (auto) 0.1 (0-0.2) 10^3/ul Absolute Nucleated RBC 0.0 10^3/ul Nucleated RBC % 0.1 Sodium 136 (135-145) mmol/L Potassium 3.7 (3.5-5.0) mmol/L Chloride 108 (101-111) mmol/L Carbon Dioxide 21 L (22-32) mmol/L Anion Gap 7 (2-11) mmol/L BUN 10 (6-24) mg/dL Creatinine 0.72 (0.51-0.95) mg/dL Est GFR ( Amer) 108.0 (>60) Est GFR (Non-Af Amer) 89.3 (>60) BUN/Creatinine Ratio 13.9 (8-20) Glucose 96 (70-100) mg/dL Lactic Acid 0.8 (0.5-2.0) mmol/L Calcium 9.6 (8.6-10.3) mg/dL Total Bilirubin 0.70 (0.2-1.0) mg/dL AST 15 (13-39) U/L ALT 7 (7-52) U/L Alkaline Phosphatase 87 (34-104) U/L Troponin I 0.00 (<0.04) ng/mL Total Protein 7.7 (6.4-8.9) g/dL Albumin 4.2 (3.2-5.2) g/dL Globulin 3.5 (2-4) g/dL Albumin/Globulin Ratio 1.2 (1-3) Result Diagrams: 05/20/19 13:53 05/20/19 13:45 Lab Statement: Any lab studies that have been ordered have been reviewed, and results considered in the medical decision making process. - Radiology CXR Radiology Interpretation Completed By: Radiologist Summary of Radiographic Findings: No active cardiopulmonary disease is noted. ED physician has reviewed this report. - EKG 1346 Cardiac Rate: NL - 72 BPM EKG Rhythm: Sinus Rhythm Summary of EKG Findings: No STEMI. Re-Evaluation - Re-Evaluation First Eval Re-Evaluation Time: 18:50 Change: Improved Comment: The patient's symptoms have improved with treatment, and she is walking without difficulty. We discussed discharge plan. Course/Dx - Course Course Of Treatment: The patient is a 39 y/o F presenting to [facility] with a chief complaint of sudden onset SOB with coughing and wheezing today. She reports that she was unable to ambulate far due to the SOB. She is not on O2 at home, but she has a nebulizer that did not help to alleviate her symptoms, which are currently rated 8/10 in severity. She denies fever, chills, erythema of eyes, sore throat, CP, abdominal pain, N/V, dysuria, hematuria, myalgia, edema, rash, and dizziness. 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 Hx of asthma, COPD, back problems, migraine. Currently taking Symbicort. Light every day smoker, no EtOH, marijuana use. Upon physical exam the patient exhibits expiratory wheezes. In the ED course, the patient was administered Decadron and Duoneb. Blood work reveals RBC of 4.91 and carbon dioxide of 21. EKG reveals NSR at 72 BPM. CXR impression: no active cardiopulmonary disease is noted. Since the patient is feeling better after treatment, she will be discharged home with dx of COPD exacerbation and follow up with PCP in 2-3 days. She is prescribed Ventolin inhaler, Doxycycline, and Prednisone. She agrees with this plan and understands the need for return to the ED for any new or worsening symptoms. - Diagnoses Provider Diagnoses: COPD exacerbation Discharge - Sign-Out/Discharge Documenting (check all that apply): Patient Departure - Patient will be discharged home. Patient Received Moderate/Deep Sedation with Procedure: No - Discharge Plan Condition: Stable Disposition: HOME Prescriptions: Albuterol HFA INHALER* [Ventolin HFA Inhaler*] 2 puff INH Q4H PRN #1 mdi PRN Reason: Cough DOXYcycline CAP(*) [DOXYcycline 100MG CAP(*)] 100 mg PO BID #10 cap predniSONE TAB* [Deltasone TAB*] 50 mg PO DAILY #5 tab Patient Education Materials: COPD (Chronic Obstructive Pulmonary Disease) (DC) Referrals: Gera GODFREY,Esau Gallardo [Primary Care Provider] - 3 Days Additional Instructions: Please take medications as prescribed. Follow up with your primary care provider in 2-3 days. RETURN TO THE EMERGENCY DEPARTMENT FOR ANY NEW OR WORSENING SYMPTOMS. - Billing Disposition and Condition Condition: STABLE Disposition: Home - Attestation Statements Document Initiated by Scribe: Yes Documenting Scribe: Verna Fernández Provider For Whom Samantha is Documenting (Include Credential): Dr. Loki Calvo MD Scribe Attestation: Verna Radford, scribed for Dr. Loki Calvo MD on 05/20/19 at 2002. Status of Scribe Document: Ready
[2019-05-20] MEDS ORDERED: Dexamethasone IV* 4 MG/ML 1 ML (4 MG) IM ONE (16:40)
[2019-05-20 19:39] VITALS: BP 114/91
== END 2019-05-20 19:44 | disposition home or self-care (01) ==
LOC: ED 13:18
DX: J44.1 Chronic obstructive pulmonary disease with (acute) exacerbation (principal); R06.02 Shortness of breath; F17.210 Nicotine dependence, cigarettes, uncomplicated
CPT/HCPCS: 36415; 71045; 80053; 83605; 84484; 85025; 87040; 93005; 96374; 99284; A9270-GY; J1100